=== PATIENT | female | born 1995 | race Caucasian/White ===

== ENCOUNTER 2021-07-31 12:50 | Emergency (ER) | payer BC, OTHER ==
[~2021-07-31 12:50] MED LIST: COLACE 100MG C100 MG PO; IBUPROFEN600 MG PO; LORTAB 5-325 M1 EACH PO; PRENATAL VITAM1 EAC8 PO
[2021-08-02 17:12] LABS: CHLAMYDIA TRACHOMATIS, NAA Negative (Negative); NEISSERIA GONORRHOEAE, NAA Negative (Negative)
== END 2021-07-31 15:25 | disposition home or self-care (01) ==
LOC: ER1 12:50
PROVIDERS: Physician Assistant
DX: Z03.821 Encounter for observation for suspected ingested foreign body ruled out (principal); F17.290 Nicotine dependence, other tobacco product, uncomplicated; Z88.5 Allergy status to narcotic agent
CPT/HCPCS: 81001; 87086; 99284